=== PATIENT | female | born 1980 | race Caucasian/White ===

== ENCOUNTER 2017-03-31 09:48 | Emergency (ER) | payer MEDICAID ==
--- NOTE | 2017-03-31 10:06 | ED Physician Documentation ---
PD HPI ABD PAIN - Stated complaint Stated Complaint: ABD PX - Chief complaint Chief Complaint: Abd Pain - History obtained from History obtained from: Patient - History of Present Illness Timing - onset: Last night Timing - details: Gradual onset Quality: Pain Location: Other (right abdomen) Worsened by: Moving Associated symptoms: No: Fever, Nausea, Vomiting, Diarrhea, Dysuria Similar symptoms before: Has not had sx before - Additional information Additional information: The patient is a 37-year-old female who presents with right mid abdominal pain. The pain started last night and is more noticeable this morning. It is worse with movement, such as bending over. She denies associated fever, nausea, vomiting, or dysuria. She denies back pain. Her last menstrual period was one week ago. She has the Depo implant, and her previous menstrual period had been 6 months prior. Her past medical history is significant for kidney stones, but this does not feel like renal colic to her. 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 06/13/15 03/31/17 Promethazine [Phenergan] 25 - 50 mg PO Q6H PRN #10 tab 03/31/17 oxyCODONE/ACET 5/325 [Percocet 5 1 - 2 tab PO Q4-6H PRN #10 tablet 03/31/17 mg/325 mg] - Allergies Allergies/Adverse Reactions: Allergies Allergy/AdvReac Type Severity Reaction Status Date / Time latex Allergy Intermediate Hives Verified 06/13/15 20:33 hydrocodone Allergy Mild Itching Verified 06/13/15 20:33 - Social History Does the pt smoke?: No Smoking Status: Never smoker Does the pt drink ETOH?: Yes Does the pt have substance abuse?: No - Immunizations Immunizations are current?: Yes - POLST Patient has POLST: No PD ED PE NORMAL - Vitals Vital signs reviewed: Yes (normal) - General General: Alert and oriented X 3, Well developed/nourished - HEENT HEENT: Atraumatic, EOMI, Pharynx benign - Neck Neck: No adenopathy - Cardiac Cardiac: RRR - Respiratory Respiratory: No respiratory distress, Clear bilaterally - Abdomen Abdomen: Normal bowel sounds, Soft, Other (Rotund abdomen. Soft with tenderness to palpation in the right mid abdomen. No rebound tenderness or guarding.) - Back Back: No CVA TTP - Derm Derm: No rash - Extremities Extremities: No edema, No calf tenderness / cord - Neuro Neuro: Alert and oriented X 3, No motor deficit, Normal speech Results - Vitals Vitals: Vital Signs - 24 hr 03/31/17 03/31/17 12:11 13:33 Temperature 37.0 C Heart Rate 72 70 Respiratory 20 18 Rate Blood Pressure 114/74 118/72 O2 Saturation 97 100 Oxygen O2 Source Room air - Labs Labs: Laboratory Tests 03/31/17 03/31/17 03/31/17 10:05 10:05 10:18 WBC 9.6 RBC 5.03 Hgb 14.5 Hct 43.6 MCV 86.6 MCH 28.8 MCHC 33.3 RDW 13.8 Plt Count 310 MPV 8.1 Neut # 6.3 Lymph # 2.5 [place] # 0.5 Eos # 0.2 Baso # 0.1 Absolute Nucleated RBC 0.00 Nucleated RBCs 0.0 Sodium 137 Potassium 4.3 Chloride 103 Carbon Dioxide 26 Anion Gap 8.0 BUN 14 Creatinine 0.6 Estimated GFR (MDRD) 113 Glucose 100 Calcium 9.3 Total Bilirubin 0.4 AST 27 ALT 37 Alkaline Phosphatase 60 Total Protein 8.4 H Albumin 4.6 Globulin 3.8 Albumin/Globulin Ratio 1.2 Lipase 21 L Urine Color YELLOW Urine Clarity CLEAR Urine pH 6.0 Ur Specific [place] 1.020 Urine Protein NEGATIVE Urine Glucose (UA) NEGATIVE Urine Ketones NEGATIVE Urine Occult Blood NEGATIVE Urine Nitrite NEGATIVE Urine Bilirubin NEGATIVE Urine Urobilinogen 0.2 (NORMAL) Ur Leukocyte Esterase NEGATIVE Ur Microscopic Review NOT INDICATED Urine Culture Comments NOT INDICATED - Rads (name of study) CT abd/pelvis Radiology: Prelim report reviewed, EMP read contemporaneously, See rad report ( 1. There is a nonobstructing 4 mm stone in the left kidney. No hydronephrosis or hydroureter. 2. No bowel obstruction or inflammatory process associated with the bowel. 3. There is a fat-containing umbilical hernia.) PD MEDICAL DECISION MAKING - ED course Complexity details: reviewed old records, reviewed results, re-evaluated patient , considered differential, d/w patient ED course: The patient's presentation is significant for right mid abdominal pain, etiology of which is not absolutely clear at this time. CT scan of the abdomen and pelvis reveals a small fat-containing umbilical hernia. It is likely that the patient's symptoms are related to this finding. CBC, chemistry panel, and urinalysis are normal. The patient does not have a surgical abdomen, and her presentation does not suggest biliary colic, pancreatitis, renal colic, or appendicitis. Treatment in the emergency department included administration of Zofran 4 mg orally. Her nausea improved with this treatment. Repeated examinations of her abdomen reveal very mild discomfort to palpation in the right mid abdomen. She is being discharged with prescriptions for Phenergan and for Percocet, 12 tablets. I discussed with her the results of her workup, symptomatic treatment and outpatient follow-up, as well as potentially worrisome signs or symptoms that should prompt reevaluation in the emergency department. Departure - Departure Disposition: 01 Home, Self Care Clinical Impression: Umbilical hernia Qualifiers: Obstruction and gangrene presence: without obstruction or gangrene Qualified Code(s): K42.9 - Umbilical hernia without obstruction or gangrene Condition: Stable Instructions: ED Abdominal Pain Unkn Cause Follow-Up: Tahir Carpenter PA-C [Primary Care Provider] - Prescriptions: oxyCODONE/ACET 5/325 [Percocet 5 mg/325 mg] 1 - 2 tab PO Q4-6H PRN #10 tablet PRN Reason: Pain Promethazine [Phenergan] 25 - 50 mg PO Q6H PRN #10 tab PRN Reason: Nausea / Vomiting Comments: Drink plenty of fluids. You can use Phenergan as prescribed if needed for nausea. You can use ibuprofen, up to 800 mg as needed for discomfort. He denies Percocet as prescribed if needed for pain. Follow up with your primary physician within 2 weeks. Call to schedule an appointment. Return to the emergency department if you develop increasing abdominal pain, persistent vomiting, fever, or otherwise worsening symptoms. Discharge Date/Time: 03/31/17 13:33
[2017-03-31 10:19] LABS: BASOPHILS # (AUTO) 0.1 10^3/uL (0.0-0.1); BASOPHILS % (AUTO) 0.7 %; EOSINOPHILS # (AUTO) 0.2 10^3/uL (0.0-0.7); EOSINOPHILS % (AUTO) 2.4 %; HCT - HEMATOCRIT 43.6 % (37.0-47.0); HGB - HEMOGLOBIN 14.5 g/dL (12.0-16.0); LYMPHOCYTES # (AUTO) 2.5 10^3/uL (1.5-3.5); LYMPHOCYTES % (AUTO) 26.5 %; MEAN CORPUSCULAR HEMOGLOBIN 28.8 pg (27.0-31.0); MEAN CORPUSCULAR HGB CONC 33.3 g/dL (32.0-36.0); MEAN CORPUSCULAR VOLUME 86.6 fL (81.0-99.0); MEAN PLATELET VOLUME 8.1 fL (7.9-10.8); MONOCYTES # (AUTO) 0.5 10^3/uL (0.0-1.0); MONOCYTES % (AUTO) 5.1 %; NEUTROPHILS # (AUTO) 6.3 10^3/uL (1.5-6.6); NEUTROPHILS % (AUTO) 65.3 %; RED BLOOD COUNT 5.03 10^6/uL (4.20-5.40); RED CELL DISTRIBUTION WIDTH 13.8 % (12.0-15.0); UNCORRECTED WHITE BLOOD COUNT 9.6 x10^3/uL; WHITE BLOOD COUNT 9.6 x10^3/uL (4.8-10.8)
[2017-03-31 10:27] LABS: BILIRUBIN,URINE NEGATIVE (NEGATIVE)
[2017-03-31 10:29] LABS: UA CHARGE (STRIP ONLY) YES; UR CULTURE IF IND NOT INDICATED
[2017-03-31 10:32] LABS: ALBUMIN/GLOBULIN RATIO 1.2 (1.0-2.2); BILIRUBIN,TOTAL 0.4 mg/dL (0.2-1.0); CALCIUM 9.3 mg/dL (8.5-10.3); CREATININE 0.6 mg/dL (0.4-1.0); POTASSIUM 4.3 mmol/L (3.5-5.0); TOTAL PROTEIN 8.4 g/dL (6.7-8.2)
--- NOTE | 2017-03-31 12:28 | CT Preliminary Report ---
Exam: CT Abdomen/Pelvis W/O IMPRESSION: 1. There is a nonobstructing 4 mm stone in the left kidney. No hydronephrosis or hydroureter. 2. No bowel obstruction or inflammatory process associated with the bowel. 3. There is a fat-containing umbilical hernia. [facility] SITE ID: [id number]
--- NOTE | 2017-03-31 12:31 | CT Report ---
EXAM: CT ABDOMEN AND PELVIS EXAM DATE: 03/31/2017 12:06 PM. CLINICAL HISTORY: Right mid abd. pain; history of kidney stones. COMPARISONS: None. TECHNIQUE: Routine helical CT imaging was performed through the abdomen and pelvis. IV contrast: None . Enteric contrast: No. Reconstructions: Coronal and sagittal. In accordance with CT protocol optimization, one or more of the following dose reduction techniques w ere utilized for this exam: automated exposure control, adjustment of mA and/or KV based on patient s ize, or use of iterative reconstructive technique. FINDINGS: Lung Bases: Unremarkable. Liver: The liver is low in attenuation with no focal lesions. Gallbladder/Bile Ducts: Status post cholecystectomy. Spleen: Normal. Pancreas: Normal. Adrenal Glands: Normal. Kidneys: 4 mm nonobstructing stone in the left kidney. No hydronephrosis or hydroureter. Peritoneal Cavity/Bowel: Normal. No free fluid, free air or adenopathy. No masses or acute inflammato ry process. The appendix is well visualized and normal. Pelvic Organs: Normal. The bladder and visualized pelvic organs are within normal limits. Vasculature: No aneurysms or other significant abnormality. Bones: No significant abnormality. Other: There is a fat-containing umbilical hernia measuring 9 mm at the neck. IMPRESSION: 1. There is a nonobstructing 4 mm stone in the left kidney. No hydronephrosis or hydroureter. 2. No bowel obstruction or inflammatory process associated with the bowel. 3. There is a fat-containing umbilical hernia. [facility] Referring Provider Line: [phone] SITE ID: [id number]
[2017-03-31] MEDS ORDERED: ONDANSETRON ODT 4 MG TABLET TL STA (12:57)
[2017-03-31] MEDS ORDERED: ONDANSETRON ODT 4 MG TABLET ONE (13:04)
[2017-03-31 13:34] VITALS: BP 118/72
== END 2017-03-31 13:33 | disposition home or self-care (01) ==
LOC: ED 09:48
DX: K42.9 Umbilical hernia without obstruction or gangrene (principal)
CPT/HCPCS: 36415; 74176; 80053; 81003; 83690; 85025; 99283; Q0162; 81001; 87086

== ENCOUNTER 2017-07-10 18:56 | Emergency (ER) | payer MEDICAID ==
[2017-07-10] MEDS ORDERED: TETANUS/DIPHTHERIA/PERTUSSIS 0.5 ML SYRINGE IM ONE ×2 (19:16→19:42)
--- NOTE | 2017-07-10 19:23 | ED Physician Documentation ---
PD HPI LOWER EXT INJURY - Stated complaint Stated Complaint: RIGHT TOE INJURY - Chief complaint Chief Complaint: Ext Problem - History obtained from History obtained from: Patient - History of Present Illness PD HPI LOW EXT INJURY LOCATION: Right, Toe (She was at a fabric store and her daughter opened up a drawer and it impacted her great toe and the toenail is broken and quite painful. Tetanus is not up-to-date. 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 : Kidney stones HEENT: None Psych: Depression Musculoskeletal: None Derm: None - Past Surgical History Past Surgical History: Yes General: Cholecystectomy - Present Medications Home Medications: Ambulatory Orders Medication Instructions Recorded Confirmed FLUoxetine [PROzac] 40 mg PO DAILY 05/05/14 07/10/17 - Allergies Allergies/Adverse Reactions: Allergies Allergy/AdvReac Type Severity Reaction Status Date / Time latex Allergy Intermediate Hives Verified 07/10/17 19:07 hydrocodone Allergy Mild Itching Verified 07/10/17 19:07 - Social History Does the pt smoke?: No Smoking Status: Never smoker Does the pt drink ETOH?: Yes Does the pt have substance abuse?: No - Immunizations Immunizations are current?: Yes - POLST Patient has POLST: No PD ED PE NORMAL - Vitals Vital signs reviewed: Yes - General General: Alert and oriented X 3, No acute distress - Extremities Extremities: Other (There is a longitudinal break in the right great toenail, she has nail slovenian in place so I am unable during initial evaluation to evaluate for subungual hematoma, she is tender at the tip.) - Neuro Neuro: Alert and oriented X 3, Normal speech - Psych Psych: Normal mood, Normal affect Results - Vitals Vitals: Vital Signs - 24 hr 07/10/17 07/10/17 19:05 20:23 Temperature 36.3 C L 37.1 C Heart Rate 87 78 Respiratory 18 20 Rate Blood Pressure 126/79 114/75 O2 Saturation 100 99 Oxygen O2 Source Room air - Rads (name of study) R 1st toe Radiology: EMP read contemporaneously (no frx) Procedures - Regional nerve block Nerve block site: Digital - note digit(s) (Right great toe) Nerve block anesthesia: Lidocaine 1%, Marcaine 0.25% Nerve block aftercare: Excellent anesthesia PD MEDICAL DECISION MAKING - ED course ED course: After the administration of a digital block the toenail slovenian was removed and there was no significant subungual hematoma, she does have a onychomycosis. Departure - Departure Disposition: 01 Home, Self Care Clinical Impression: Crushing injury of toe Qualifiers: Encounter type: initial encounter Laterality: right Qualified Code(s): S97.101A - Crushing injury of unspecified right toe(s), initial encounter Condition: Good Record reviewed to determine appropriate education?: Yes Instructions: ED Crush Injury Toe No Fx Comments: Recheck with your doctor in 1 week if still painful. Return if worse. Discharge Date/Time: 07/10/17 20:25
[2017-07-10] MEDS ORDERED: oxyCODONE/ACET 5/325 Prepack 4 PO STA (20:09)
--- NOTE | 2017-07-10 20:17 | XRAY Preliminary Report ---
Exam: XR TOE(S) RT IMPRESSION: 1. Mild first toe swelling. 2. Normal alignment. 3. No fracture. [facility] SITE ID: [id number]
--- NOTE | 2017-07-10 20:20 | XRAY Report ---
EXAM: RIGHT FIRST TOE RADIOGRAPHY EXAM DATE: 07/10/2017 07:32 PM. CLINICAL HISTORY: Great toe inj. COMPARISON: None. TECHNIQUE: 3 views. FINDINGS: Bones: Normal. No fracture or bone lesion. Joints: Normal. No subluxations. Soft Tissues: Mild first toe swelling. IMPRESSION: 1. Mild first toe swelling. 2. Normal alignment. 3. No fracture. [facility] Referring Provider Line: [phone] SITE ID: [id number]
[2017-07-10] MEDS ORDERED: oxyCODONE/ACET 5/325 Prepack 4 PO ONE (20:21)
[2017-07-10 20:24] VITALS: BP 114/75
== END 2017-07-10 20:25 | disposition home or self-care (01) ==
LOC: ED 18:56
DX: S97.111A Crushing injury of right great toe, initial encounter (principal); Y92.512 Supermarket, store or market as the place of occurrence of the external cause; W22.8XXA Striking against or struck by other objects, initial encounter; B35.1 Tinea unguium; M79.674 Pain in right toe(s); Z23 Encounter for immunization
CPT/HCPCS: 64450; 73660; 90471; 99283

== ENCOUNTER 2018-11-13 10:16 | Emergency (ER) | payer MEDICAID ==
[2018-11-13 10:35] VITALS: BP 132/72
--- NOTE | 2018-11-13 12:17 | ED Physician Documentation ---
PD HPI URI - Stated complaint Stated Complaint: EAR PAIN/THROAT PAIN - Chief complaint Chief Complaint: Heent - History obtained from History obtained from: Patient - History of Present Illness Timing - onset: Other (She is been sick for about 5 days with on and off scratchy throat but significant ear pressure and pain on the left with slightly decreased hearing. No drainage. 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 : Kidney stones HEENT: None Psych: Depression Musculoskeletal: None Derm: None - Past Surgical History Past Surgical History: Yes General: Cholecystectomy - Present Medications Home Medications: Ambulatory Orders Medication Instructions Recorded Confirmed FLUoxetine [PROzac] 40 mg PO DAILY 05/05/14 07/10/17 Neomycin/Polymyx/Hc Otic Drops 4 drops OT TID #1 bottle 11/13/18 [Cortisporin Ear Susp] - Allergies Allergies/Adverse Reactions: Allergies Allergy/AdvReac Type Severity Reaction Status Date / Time latex Allergy Intermediate Hives Verified 07/10/17 19:07 hydrocodone Allergy Mild Itching Verified 07/10/17 19:07 - Social History Does the pt smoke?: No Smoking Status: Never smoker Does the pt drink ETOH?: Yes Does the pt have substance abuse?: No - Immunizations Immunizations are current?: Yes - POLST Patient has POLST: No PD ED PE NORMAL - Vitals Vital signs reviewed: Yes - General General: Alert and oriented X 3, No acute distress - HEENT HEENT: Other (Tonsils look okay and there is no cervical adenopathy. She has a mild case of left external otitis without otitis media.) - Neck Neck: Supple, no meningeal sign, No bony TTP, No adenopathy - Derm Derm: No rash - Extremities Extremities: No edema, No calf tenderness / cord - Neuro Neuro: Alert and oriented X 3, Normal speech Results - Vitals Vitals: Vital Signs - 24 hr 11/13/18 10:33 Temperature 36.5 C Heart Rate 78 Respiratory 16 Rate Blood Pressure 132/72 H O2 Saturation 97 Oxygen O2 Source Room air Departure - Departure Disposition: 01 Home, Self Care Clinical Impression: Viral URI Otitis externa, left Qualifiers: Otitis externa type: swimmer's ear Chronicity: acute Qualified Code(s): H60.332 - Swimmer's ear, left ear Condition: Good Record reviewed to determine appropriate education?: Yes Instructions: ED Otitis Externa, ED Viral Syndrome Prescriptions: Neomycin/Polymyx/Hc Otic Drops [Cortisporin Ear Susp] 4 drops OT TID #1 bottle Comments: Return for new or worsening symptoms or if not better in 5 days follow-up with your physician. Your blood pressure was elevated today on check into the emergency department. This does not mean that you have hypertension, it is a common phenomenon to come to the emergency department and have elevated blood pressure. I recommend that you see your primary care physician within the week to have it rechecked when you are feeling better.
== END 2018-11-13 13:57 | disposition home or self-care (01) ==
LOC: ED 10:16
DX: J06.9 Acute upper respiratory infection, unspecified (principal); B97.89 Other viral agents as the cause of diseases classified elsewhere; H60.332 Swimmer's ear, left ear
CPT/HCPCS: 99283

== ENCOUNTER 2019-12-03 12:30 | Outpatient (CLI) | payer MEDICAID ==
--- NOTE | 2019-12-03 14:26 | Ultrasound Report ---
Reason: RT AXILLA LUMPS Procedure Date: 12/03/2019 Accession Number: [id number] / [id number] Procedure: US - Breast Unilateral Limited CPT Code: Final Report FULL RESULT: EXAM: Diagnostic Dig Bilat, Breast Unilateral Limited Left, Breast Unilateral Limited Right DATE: 12/03/2019 1:32 PM CLINICAL HISTORY: Palpable axillary lumps. COMPARISON: Baseline study. MAMMOGRAM: TECHNIQUE: (B) - Bilateral CC and MLO views were obtained. PARENCHYMAL PATTERN: (A) - The breasts demonstrate scattered fibroglandular densities bilaterally. FINDINGS: There are no suspicious masses, calcifications, skin thickening, or areas of distortion. An axillary lymph node is seen on the left. BILATERAL AXILLARY ULTRASOUND: TECHNIQUE: Real time scanning by the dual rate supervisor with saved static images reviewed. FINDINGS: Bilateral normal-appearing lymph nodes correspond to the palpable finding in each axilla. On the right the dominant lymph node is 1.3 x 1.3 x 0.5 cm and on the left 1.2 x 0.9 x 0.6 cm. IMPRESSION: Benign findings. BI-RADS category 2. RECOMMENDATION: (ANNUAL) - Recommend routine annual screening mammography. Beginning at age 40. BI-RADS CATEGORY: (2) - Benign Findings. STANDARD QUALIFYING STATEMENTS: 1. This examination was not reviewed with the aid of Computer-Aided Detection (CAD). 2. A negative or benign imaging report should not preclude biopsy if clinically suspicious findings are present. 3. Dense breasts may obscure an underlying neoplasm. 4. This examination was reviewed with the aid of 3D breast imaging (tomosynthesis).
--- NOTE | 2019-12-03 14:26 | Ultrasound Report ---
Reason: LT BREAST PAIN, LT AXILLA LUMPS Procedure Date: 12/03/2019 Accession Number: [id number] / [id number] Procedure: US - Breast Unilateral Limited CPT Code: Final Report FULL RESULT: EXAM: Diagnostic Dig Bilat, Breast Unilateral Limited Left, Breast Unilateral Limited Right DATE: 12/03/2019 1:32 PM CLINICAL HISTORY: Palpable axillary lumps. COMPARISON: Baseline study. MAMMOGRAM: TECHNIQUE: (B) - Bilateral CC and MLO views were obtained. PARENCHYMAL PATTERN: (A) - The breasts demonstrate scattered fibroglandular densities bilaterally. FINDINGS: There are no suspicious masses, calcifications, skin thickening, or areas of distortion. An axillary lymph node is seen on the left. BILATERAL AXILLARY ULTRASOUND: TECHNIQUE: Real time scanning by the live in housekeeper with saved static images reviewed. FINDINGS: Bilateral normal-appearing lymph nodes correspond to the palpable finding in each axilla. On the right the dominant lymph node is 1.3 x 1.3 x 0.5 cm and on the left 1.2 x 0.9 x 0.6 cm. IMPRESSION: Benign findings. BI-RADS category 2. RECOMMENDATION: (ANNUAL) - Recommend routine annual screening mammography. Beginning at age 40. BI-RADS CATEGORY: (2) - Benign Findings. STANDARD QUALIFYING STATEMENTS: 1. This examination was not reviewed with the aid of Computer-Aided Detection (CAD). 2. A negative or benign imaging report should not preclude biopsy if clinically suspicious findings are present. 3. Dense breasts may obscure an underlying neoplasm. 4. This examination was reviewed with the aid of 3D breast imaging (tomosynthesis).
== END 2019-12-03 12:31 | disposition home or self-care (01) ==
LOC: DI 12:30
PROVIDERS: ATTEND Nurse Practitioner Gerontology
DX: N64.4 Mastodynia (principal); R22.9 Localized swelling, mass and lump, unspecified
CPT/HCPCS: 76642; 77066

== ENCOUNTER 2020-02-09 22:29 | Emergency (ER) | payer MEDICAID ==
--- NOTE | 2020-02-09 22:44 | ED Physician Documentation ---
History of Present Illness - Stated complaint Stated Complaint: CP, SOA, BRUISING, SERNA - Chief complaint Chief Complaint: Resp - History obtained from History obtained from: Patient (Patient is a 40-year-old female who presents with chest pain and shortness of breath and rapid heartbeat patient reports she has had symptoms off and on for the last 2 weeks without hemoptysis no history of pulmonary embolism or DVT no history of syncope or VT or stroke. She does have an indwelling Implanon device. She denies any fevers or syncopal episodes.) Review of Systems Constitutional: reports: Reviewed and negative Eyes: reports: Reviewed and negative Ears: reports: Reviewed and negative Nose: reports: Reviewed and negative Throat: reports: Reviewed and negative Cardiac: reports: Palpitations Respiratory: reports: Dyspnea GI: reports: Reviewed and negative : reports: Reviewed and negative Skin: reports: Reviewed and negative Musculoskeletal: reports: Reviewed and negative Neurologic: reports: Reviewed and negative Psychiatric: reports: Reviewed and negative Endocrine: reports: Reviewed and negative Immunocompromised: reports: Reviewed and negative PD PAST MEDICAL HISTORY - Past Medical History Cardiovascular: None Respiratory: None Endocrine/Autoimmune: None GI: None CLIENT ADMINISTRATOR: None : Kidney stones HEENT: None Psych: Depression Musculoskeletal: None Derm: None - Past Surgical History Past Surgical History: Yes General: Cholecystectomy - Present Medications Home Medications: Ambulatory Orders Medication Instructions Recorded Confirmed FLUoxetine [PROzac] 40 mg PO DAILY 05/05/14 07/10/17 Neomycin/Polymyx/Hc Otic Drops 4 drops OT TID #1 bottle 11/13/18 [Cortisporin Ear Susp] - Allergies Allergies/Adverse Reactions: Allergies Allergy/AdvReac Type Severity Reaction Status Date / Time latex Allergy Intermediate Hives Verified 02/09/20 22:38 hydrocodone Allergy Mild Itching Verified 02/09/20 22:38 - Social History Does the pt smoke?: No Smoking Status: Never smoker Does the pt drink ETOH?: Yes Does the pt have substance abuse?: No - Immunizations Immunizations are current?: Yes - POLST Patient has POLST: No PD ED PE NORMAL - Vitals Vital signs reviewed: Yes - General General: Alert and oriented X 3, No acute distress, Well developed/nourished - HEENT HEENT: PERRL, Moist mucous membranes - Neck Neck: Supple, no meningeal sign, Thyroid normal - Cardiac Cardiac: No murmur, Strong equal pulses, Other (Tachycardic) - Respiratory Respiratory: No respiratory distress, Clear bilaterally - Abdomen Abdomen: Normal bowel sounds, Soft, Non tender, Non distended - Back Back: No CVA TTP, No spinal TTP - Derm Derm: Normal color, Warm and dry, No rash - Extremities Extremities: No deformity, No tenderness to palpate, Normal ROM s pain, No edema, No calf tenderness / cord - Neuro Neuro: Alert and oriented X 3, blocker and polisher gold wheel 2-12 intact, No motor deficit, No sensory deficit, Normal speech - Psych Psych: Normal mood, Normal affect Results - Vitals Vitals: Vital Signs - 24 hr 02/09/20 02/09/20 02/10/20 22:30 23:41 01:00 Temperature 36.1 C L Heart Rate 120 H 96 98 Respiratory 17 20 21 Rate Blood Pressure 125/66 114/73 109/64 O2 Saturation 97 96 96 Oxygen O2 Source Room air - EKG (time done) 22:43 Rate: Other (No STEMI) - Labs Labs: Laboratory Tests 02/09/20 02/09/20 02/09/20 22:50 22:50 22:50 WBC 9.1 RBC 4.98 Hgb 14.5 Hct 44.4 MCV 89.2 MCH 29.1 MCHC 32.7 RDW 13.1 Plt Count 354 MPV 9.3 Neut # (Auto) 5.9 Lymph # (Auto) 2.0 [place] # (Auto) 0.7 Eos # (Auto) 0.4 Baso # (Auto) 0.1 Absolute Nucleated RBC 0.00 Nucleated RBC % 0.0 PT 15.2 H INR 1.4 H APTT 32.9 Sodium 137 Potassium 3.7 Chloride 102 Carbon Dioxide 23 Anion Gap 12.0 BUN 14 Creatinine 0.8 Estimated GFR (MDRD) 80 L Glucose 123 H Calcium 9.8 Total Bilirubin 0.5 AST 46 H ALT 77 H Alkaline Phosphatase 108 Total Creatine Kinase 77 Troponin I High Sens B-Natriuretic Peptide Total Protein 8.6 H Albumin 4.3 Globulin 4.3 H Albumin/Globulin Ratio 1.0 Lipase 33 Urine Color Urine Clarity Urine pH Ur Specific [place] Urine Protein Urine Glucose (UA) Urine Ketones Urine Occult Blood Urine Nitrite Urine Bilirubin Urine Urobilinogen Ur Leukocyte Esterase Ur Microscopic Review Urine Culture Comments Urine HCG, Qual 02/09/20 02/09/2020 22:50 22:50 23:24 WBC RBC Hgb Hct MCV MCH MCHC RDW Plt Count MPV Neut # (Auto) Lymph # (Auto) [place] # (Auto) Eos # (Auto) Baso # (Auto) Absolute Nucleated RBC Nucleated RBC % PT INR APTT Sodium Potassium Chloride Carbon Dioxide Anion Gap BUN Creatinine Estimated GFR (MDRD) Glucose Calcium Total Bilirubin AST ALT Alkaline Phosphatase Total Creatine Kinase Troponin I High Sens 3.4 B-Natriuretic Peptide 5 Total Protein Albumin Globulin Albumin/Globulin Ratio Lipase Urine Color YELLOW Urine Clarity CLEAR Urine pH 6.0 Ur Specific [place] 1.015 Urine Protein NEGATIVE Urine Glucose (UA) NEGATIVE Urine Ketones NEGATIVE Urine Occult Blood NEGATIVE Urine Nitrite NEGATIVE Urine Bilirubin NEGATIVE Urine Urobilinogen 0.2 (NORMAL) Ur Leukocyte Esterase NEGATIVE Ur Microscopic Review NOT INDICATED Urine Culture Comments NOT INDICATED Urine HCG, Qual 02/09/20 23:24 WBC RBC Hgb Hct MCV MCH MCHC RDW Plt Count MPV Neut # (Auto) Lymph # (Auto) [place] # (Auto) Eos # (Auto) Baso # (Auto) Absolute Nucleated RBC Nucleated RBC % PT INR APTT Sodium Potassium Chloride Carbon Dioxide Anion Gap BUN Creatinine Estimated GFR (MDRD) Glucose Calcium Total Bilirubin AST ALT Alkaline Phosphatase Total Creatine Kinase Troponin I High Sens B-Natriuretic Peptide Total Protein Albumin Globulin Albumin/Globulin Ratio Lipase Urine Color Urine Clarity Urine pH Ur Specific [place] 1.015 Urine Protein Urine Glucose (UA) Urine Ketones Urine Occult Blood Urine Nitrite Urine Bilirubin Urine Urobilinogen Ur Leukocyte Esterase Ur Microscopic Review Urine Culture Comments Urine HCG, Qual NEGATIVE PD MEDICAL DECISION MAKING - ED course Complexity details: reviewed results (Patient's chest x-ray shows some Right infrahilar mass. This is likely the cause of the persistent symptoms to include shortness of breath. She denies any fevers, headaches, chills or night sweats denies any recent believe she would have tuberculosis denies any risk factors such as being immunocompromised or travel outside the country or work in the healthcare industry. She denies any hemoptysis a CT angiogramOf the chest was ordered which was unable to completely rule out pulmonary embolus, I explained this to the patient, did notice on the CT angiogram that there was interpretation by the radiologistThat she has extensive mediastinal and hilar lymphadenopathy as well as interstitial changes in the periphery of the lungs and a small pulmonary nodule in the right upper lobe had an extensive discussion with this patient in regards of this findings it was unable to rule out a pulmonary embolism and unable to give a final diagnosis of the cause of her shortness of breath however I believe it is very likely that the cause of her shortness of breath is related to her extensive mediastinal and hilar lymphaden opathy I did offer to admit this patient to our hospital for further evaluation however she states that she would like to be discharged home I did offer to transfer her to a higher level of care for pulmonology consult to [facility] however the begin the patient reports she like to be discharged home and follow-up as an outpatient I do feel this is reasonable. She has good follow-up with a primary care provider she was given a referral to the production superintendent at [facility] Dr. Michelle Saab production superintendent.Patient does have medical decision-making capability capacity and would except any and all risks and all live but he for any possible adverse outcome to include cardiac or pulmonary arrest or disability.), re-evaluated patient, considered differential, d/w patient Departure - Departure Disposition: 01 Home, Self Care Clinical Impression: Pulmonary nodules, Hilar lymphadenopathy Condition: Stable Instructions: Lymphadenopathy, ED Nodule Solitary Pulmonary Follow-Up: MICHELLE SAAB DO [Physician No Access] - Tomorrow Comments: call dr. michelle saab, telecom specialist tomorrow to schedule follow up. your CT scan of the chest shows the following results: CTA PE STUDY: IMPRESSION: 1. Nondiagnostic study for pulmonary emboli. No opacification of the pulmonary arteries. 2. Extensive mediastinal and hilar lymphadenopathy. 3. Interstitial changes in the periphery of the lungs and a small pulmonary nodule in the right upper lobe. CXR: IMPRESSION: 1. No infiltrates. 2. Right infrahilar mass. If clinically appropriate a CT scan of the chest with contrast might be considered for further characterization.
[2020-02-09] MEDS ORDERED: SODIUM CHLORIDE 0.9% 1,000 ML IV STA (22:46)
[2020-02-09 22:56] LABS: BASOPHILS # (AUTO) 0.1 10^3/uL (0.0-0.1); BASOPHILS % (AUTO) 0.7 %; EOSINOPHILS # (AUTO) 0.4 10^3/uL (0.0-0.7); EOSINOPHILS % (AUTO) 4.8 %; HGB - HEMOGLOBIN 14.5 g/dL (12.0-16.0); LYMPHOCYTES % (AUTO) 21.5 %; MEAN CORPUSCULAR HEMOGLOBIN 29.1 pg (27.0-31.0); MEAN CORPUSCULAR HGB CONC 32.7 g/dL (32.0-36.0); MEAN CORPUSCULAR VOLUME 89.2 fL (81.0-99.0); MEAN PLATELET VOLUME 9.3 fL (7.9-10.8); MONOCYTES # (AUTO) 0.7 10^3/uL (0.0-1.0); MONOCYTES % (AUTO) 7.5 %; NEUTROPHILS # (AUTO) 5.9 10^3/uL (1.5-6.6); NEUTROPHILS % (AUTO) 64.9 %; PLT - PLATELET COUNT 354 10^3/uL (130-450); RED BLOOD COUNT 4.98 10^6/uL (4.20-5.40); RED CELL DISTRIBUTION WIDTH 13.1 % (12.0-15.0); WHITE BLOOD COUNT 9.1 x10^3/uL (4.8-10.8)
[2020-02-09 23:05] LABS: INR 1.4 (0.8-1.2); PT - PROTHROMBIN TIME 15.2 secs (9.9-12.6)
[2020-02-09 23:12] LABS: PARTIAL THROMBOPLASTIN TIME 32.9 secs (24.9-33.3)
--- NOTE | 2020-02-09 23:17 | XRAY Report ---
Reason: cp sob Procedure Date: 02/09/2020 Accession Number: [id number] / [id number] Procedure: XR - Chest 1 View X-Ray CPT Code: 94446 Final Report FULL RESULT: EXAM: CHEST RADIOGRAPHY EXAM DATE: 02/09/2020 10:44 PM. CLINICAL HISTORY: Cp sob. COMPARISON: None. TECHNIQUE: 1 view. FINDINGS: Lungs/Pleura: There are no acute infiltrates. No pleural effusions. Mediastinum: The heart is not enlarged. There is a right infrahilar mass which measures approximately 3.4 cm. Other: None. IMPRESSION: 1. No infiltrates. 2. Right infrahilar mass. If clinically appropriate a CT scan of the chest with contrast might be considered for further characterization. RADIA
[2020-02-09 23:20] LABS: ALBUMIN 4.3 g/dL (3.2-5.5); BILIRUBIN,TOTAL 0.5 mg/dL (0.2-1.0); CALCIUM 9.8 mg/dL (8.5-10.3); CREATININE 0.8 mg/dL (0.4-1.0); TOTAL PROTEIN 8.6 g/dL (6.7-8.2)
[2020-02-09 23:41] LABS: BILIRUBIN,URINE NEGATIVE (NEGATIVE); GLUCOSE, URINE (UA) NEGATIVE (NEGATIVE); KETONES,URINE (UA) NEGATIVE (NEGATIVE); LEUKOCYTE ESTERASE, URINE NEGATIVE (NEGATIVE); NITRITE,URINE NEGATIVE (NEGATIVE); OCCULT BLOOD,URINE NEGATIVE (NEGATIVE); PROTEIN,URINE NEGATIVE (NEGATIVE); UROBILINOGEN,URINE 0.2 (NORMAL) E.U./dL (NORMAL)
[2020-02-09 23:45] LABS: CLARITY,URINE CLEAR (CLEAR); HCG UR QUAL NEGATIVE
[2020-02-09] MEDS ORDERED: IOVERSOL 320 100 ML VIAL IVP ONE (23:51)
[2020-02-10] MEDS ORDERED: IOVERSOL 320 100 ML VIAL IVP ONE (00:34)
--- NOTE | 2020-02-10 00:53 | CT Report ---
Reason: chest pain, sob, tachycardic Procedure Date: 02/10/2020 Accession Number: [id number] / [id number] Procedure: CT - ANGIO CHEST W/WO CPT Code: Final Report FULL RESULT: EXAM: CT ANGIOGRAM CHEST EXAM DATE: 02/10/2020 12:32 AM. CLINICAL HISTORY: Chest pain, shortness of breath, tachycardic. COMPARISON: None. TECHNIQUE: Routine helical imaging was performed through the chest in the pulmonary arterial phase. IV Contrast: Optiray 320. Reconstructions: Coronal 3-D MIP reconstructions. Sagittal and coronal. In accordance with CT protocol optimization, one or more of the following dose reduction techniques were utilized for this exam: automated exposure control, adjustment of mA and/or KV based on patient size, or use of iterative reconstructive technique. FINDINGS: Pulmonary Arteries: Diagnostic quality: There is no opacification of the pulmonary arteries. The contrast was largely in the draining pulmonary veins and the left heart and aorta. Lungs/Pleura: There are interstitial changes within the lungs. There is a small ill-defined pulmonary nodule in the right upper lobe on series 6 image 73. This measures 8 mm. Mediastinum: There is extensive mediastinal and bi-hilar lymphadenopathy. Hilar lymph nodes measure up to 26 mm in short axis diameter. Subcarinal lymph node measures up to 23 mm in short axis diameter. There are large lymph nodes in the middle mediastinum and along the aortic arch. There is no axillary lymphadenopathy. Thoracic Aorta: Unremarkable. Upper Abdomen: Unremarkable. Other: None. IMPRESSION: 1. Nondiagnostic study for pulmonary emboli. No opacification of the pulmonary arteries. 2. Extensive mediastinal and hilar lymphadenopathy. 3. Interstitial changes in the periphery of the lungs and a small pulmonary nodule in the right upper lobe. RADIA
[2020-02-10 01:23] VITALS: BP 121/89
== END 2020-02-10 01:29 | disposition home or self-care (01) ==
LOC: ED 22:29
DX: R91.1 Solitary pulmonary nodule (principal); R59.0 Localized enlarged lymph nodes; R00.0 Tachycardia, unspecified; I44.4 Left anterior fascicular block
CPT/HCPCS: 36415; 71045; 71275; 80053; 81003; 81025; 82550; 83690; 83880; 84484; 85025; 85610; 85730; 93005; 96360; 99284; 99285; Q9967; 81001; 87086

== ENCOUNTER 2020-05-05 08:00 | Outpatient (CLI) | payer MEDICAID ==
[2020-05-05 19:11] LABS: HB2 TOTAL 14.2 g/dL; HEMOGLOBIN A1C 0.59 g/dL
== END 2020-05-05 23:59 | disposition home or self-care (01) ==
LOC: LAB.WCP 08:00
PROVIDERS: ATTEND Family Medicine
DX: R73.9 Hyperglycemia, unspecified (principal)
CPT/HCPCS: 36415; 83036

== ENCOUNTER 2020-06-20 12:11 | Outpatient (CLI) | payer MEDICAID ==
[2020-06-20] MEDS ORDERED: IOVERSOL 320 100 ML VIAL IVP ONE ×2 (12:34→12:43)
--- NOTE | 2020-06-20 13:19 | CT Report ---
PROCEDURE: CHEST W INDICATIONS: SARCOIDOSIS CONTRAST: IV CONTRAST: Optiray 320 ml: 100 PO CONTRAST: *NO PO CONTRAST TECHNIQUE: After the administration of intravenous contrast, 5 mm thick sections acquired from the pulmonary api mary kay to the posterior costophrenic angles. 7 mm thick coronal MIP reformats were acquired. For radia tion dose reduction, the following was used: automated exposure control, adjustment of mA and/or kV according to patient size. COMPARISON: CTA chest 02/10/2020. FINDINGS: Image quality: Excellent. Lungs and pleura: No acute air space opacities. A right upper lobe peribronchial vascular nodule rené sures 4 x 5 mm (image 60 of series 4), compared to 8 x 8 mm on the prior CT from 02/10/2020. No signif icant reticulations are seen. There is no significant air trapping. No pleural effusions or pneumotho rax. Central and peripheral airways are patent and normal in caliber. Mediastinum: Heart size is normal. No pericardial effusion. No mediastinal or hilar adenopathy by size criteria. Thoracic aorta and central pulmonary arteries are normal in size. Esophagus is juani l in caliber. There is a small hiatal hernia. Bones and chest wall: No suspicious bony lesions. No vertebral body compression fractures. No axil dottie or supraclavicular adenopathy by size criteria. Thyroid gland appears normal. Abdomen: Status post cholecystectomy. A 5 mm nonobstructing calculus is seen in the interpolar regio n of the left kidney. Visualized upper abdominal solid organs otherwise appear normal. Upper abdomin al bowel loops are normal in caliber. IMPRESSION: 1. The previously seen hilar and mediastinal lymphadenopathy has resolved without residual lymph nod e enlargement in the chest. 2. Right upper lobe 5 mm peribronchovascular pulmonary nodule has decreased in size when compared to the prior CTA from 02/10/2020. No new pulmonary nodule is identified. 3. Nonobstructing 5 mm calculus in the interpolar region of the left kidney. Reviewed by: Melo Reynoso MD on 06/20/2020 1:18 PM PDT Approved by: Melo Reynoso MD on 06/20/2020 1:18 PM PDT Station ID: [id number]
== END 2020-06-20 12:12 | disposition home or self-care (01) ==
LOC: DI 12:11
PROVIDERS: ATTEND Internal Medicine Sleep Medicine
DX: D86.9 Sarcoidosis, unspecified (principal); R91.1 Solitary pulmonary nodule; N20.0 Calculus of kidney
CPT/HCPCS: 71260; Q9967

== ENCOUNTER 2020-10-08 08:00 | Outpatient (CLI) | payer MEDICAID ==
[2020-10-08 12:39] LABS: HEMOGLOBIN A1c% 5.6 % (4.27-6.07)
[2020-10-08 13:10] LABS: CREATININE 0.7 mg/dL (0.4-1.0)
== END 2020-10-08 23:59 | disposition home or self-care (01) ==
LOC: LAB.WCP 08:00
PROVIDERS: ATTEND Nurse Practitioner Family
DX: R73.03 Prediabetes (principal)
CPT/HCPCS: 36415; 80048; 83036

== ENCOUNTER 2021-11-13 09:04 | Outpatient (CLI) | payer MEDICAID ==
[2021-11-13 12:09] LABS: BASOPHILS # (AUTO) 0.1 10^3/uL (0.0-0.1); BASOPHILS % (AUTO) 0.4 %; EOSINOPHILS # (AUTO) 0.3 10^3/uL (0.0-0.7); EOSINOPHILS % (AUTO) 2.2 %; HCT - HEMATOCRIT 42.3 % (37.0-47.0); HGB - HEMOGLOBIN 13.5 g/dL (12.0-16.0); LYMPHOCYTES # (AUTO) 3.3 10^3/uL (1.5-3.5); LYMPHOCYTES % (AUTO) 24.3 %; MEAN CORPUSCULAR HEMOGLOBIN 29.2 pg (27.0-31.0); MEAN CORPUSCULAR HGB CONC 31.9 g/dL (32.0-36.0); MEAN CORPUSCULAR VOLUME 91.4 fL (81.0-99.0); MEAN PLATELET VOLUME 9.9 fL (7.9-10.8); MONOCYTES # (AUTO) 0.7 10^3/uL (0.0-1.0); MONOCYTES % (AUTO) 4.8 %; NEUTROPHILS # (AUTO) 9.1 10^3/uL (1.5-6.6); NEUTROPHILS % (AUTO) 67.9 %; PLT - PLATELET COUNT 278 10^3/uL (130-450); RED BLOOD COUNT 4.63 10^6/uL (4.20-5.40); RED CELL DISTRIBUTION WIDTH 13.5 % (12.0-15.0); WHITE BLOOD COUNT 13.4 x10^3/uL (4.8-10.8)
[2021-11-13 12:22] LABS: ESTIMATED AVERAGE GLUCOSE 114 mg/dL (70-100); HEMOGLOBIN A1c% 5.6 % (4.27-6.07)
[2021-11-13 12:44] LABS: ALBUMIN 4.2 g/dL (3.2-5.5); ALBUMIN/GLOBULIN RATIO 1.3 (1.0-2.2); ALKALINE PHOSPHATASE 38 IU/L (42-121); ALT ALANINE AMINOTRANSFERASE 27 IU/L (10-60); AST ASPARTATE AMINOTRANSFERASE 19 IU/L (10-42); BILIRUBIN,TOTAL 0.4 mg/dL (0.2-1.0); BUN - BLOOD UREA NITROGEN 15 mg/dL (6-20); CALCIUM 9.7 mg/dL (8.5-10.3); CARBON DIOXIDE - CO2 28 mmol/L (21-32); CHLORIDE 98 mmol/L (101-111); CHOL/HDL RATIO 3.1 (<4.4); CHOLESTEROL 242 mg/dL; CREATININE 0.6 mg/dL (0.4-1.0); GFR - MDRD 111 (>89); GLUCOSE 81 mg/dL (70-100); HDL CHOLESTEROL 79 mg/dL; LDL CHOLESTEROL,CALCULATED 109 mg/dL; LDL/HDL RATIO 1.4 (<4.4); POTASSIUM 3.9 mmol/L (3.5-5.0); SODIUM 137 mmol/L (135-145); TOTAL PROTEIN 7.5 g/dL (6.7-8.2); TRIGLYCERIDES 271 mg/dL; VLDL CHOLESTEROL 54 mg/dL
[2021-11-13 12:56] LABS: THYROID STIMULATING HORMONE 1.95 uIU/mL (0.34-5.60)
[2021-11-13 13:26] LABS: BILIRUBIN,URINE NEGATIVE (NEGATIVE); GLUCOSE, URINE (UA) NEGATIVE (NEGATIVE); KETONES,URINE (UA) NEGATIVE (NEGATIVE); LEUKOCYTE ESTERASE, URINE NEGATIVE (NEGATIVE); NITRITE,URINE NEGATIVE (NEGATIVE); OCCULT BLOOD,URINE LARGE (NEGATIVE); PROTEIN,URINE TRACE mg/dL (NEGATIVE); UROBILINOGEN,URINE 0.2 (NORMAL) E.U./dL (NORMAL)
[2021-11-13 14:02] LABS: BACTERIA,URINE Rare /HPF (None Seen); CLARITY,URINE CLEAR (CLEAR); SQUAMOUS EPITHELIAL CELL,UR RARE Squamous (<= Few); WBC,URINE 0-3 /HPF (0-5)
== END 2021-11-13 09:05 | disposition home or self-care (01) ==
LOC: LAB.N 09:04
PROVIDERS: ATTEND Nurse Practitioner
DX: R53.83 Other fatigue (principal); Z13.220 Encounter for screening for lipoid disorders; R73.03 Prediabetes
CPT/HCPCS: 36415; 80053; 80061; 81001; 83036; 83721; 84443; 85025; 87086

== ENCOUNTER 2022-05-27 08:00 | Outpatient (CLI) | payer MEDICAID | END 2022-05-27 23:59 | disposition home or self-care (01) | LOC: LAB.N 08:00 | PROVIDERS: ATTEND Nurse Practitioner | DX: R10.9 Unspecified abdominal pain (principal) | CPT/HCPCS: 87086 ==

== ENCOUNTER → 2022-06-09 | Outpatient (CLI) | payer MEDICAID ==
--- NOTE | 2022-06-09 14:03 | XRAY Report ---
PROCEDURE: Chest 2 View X-Ray INDICATIONS: COUGH TECHNIQUE: 2 view(s) of the chest. COMPARISON: 02/09/2020 chest x-ray FINDINGS: Surgical changes and devices: None. Lungs and pleura: No pleural effusions or pneumothorax. Mild patchy bilateral perihilar opacity and peribronchial cuffing. Mediastinum: Mediastinal contours are normal. Heart size is normal. Bones and chest wall: No suspicious bony abnormalities. Soft tissues appear unremarkable. IMPRESSION: Mild bronchial pneumonia. Reviewed by: Nhan Brooks MD on 06/09/2022 2:02 PM PDT Approved by: Nhan Brooks MD on 06/09/2022 2:02 PM PDT Station ID: [id number]
== END ==
LOC: DI.N 11:22
PROVIDERS: ATTEND Family Medicine
DX: J18.9 Pneumonia, unspecified organism (principal)

== ENCOUNTER 2022-10-17 03:30 | Emergency (ER) | payer MEDICAID ==
[2022-10-17] MEDS ORDERED: SODIUM CHLORIDE 0.9% 1,000 ML IV STA (03:48)
[2022-10-17] MEDS ORDERED: ONDANSETRON 4 MG/2 ML VIAL IVP STA (03:48)
[2022-10-17] MEDS ORDERED: KETOROLAC 30 MG/ML VIAL IVP STA (03:48)
[2022-10-17 03:53] LABS: BASOPHILS # (AUTO) 0.1 10^3/uL (0.0-0.1); BASOPHILS % (AUTO) 0.5 %; EOSINOPHILS # (AUTO) 0.3 10^3/uL (0.0-0.7); EOSINOPHILS % (AUTO) 2.6 %; HCT - HEMATOCRIT 43.3 % (37.0-47.0); HGB - HEMOGLOBIN 13.6 g/dL (12.0-16.0); LYMPHOCYTES % (AUTO) 26.7 %; MEAN CORPUSCULAR HEMOGLOBIN 27.9 pg (27.0-31.0); MEAN CORPUSCULAR HGB CONC 31.4 g/dL (32.0-36.0); MEAN CORPUSCULAR VOLUME 88.9 fL (81.0-99.0); MEAN PLATELET VOLUME 9.4 fL (7.9-10.8); MONOCYTES # (AUTO) 0.7 10^3/uL (0.0-1.0); MONOCYTES % (AUTO) 6.7 %; PLT - PLATELET COUNT 376 10^3/uL (130-450); RED BLOOD COUNT 4.87 10^6/uL (4.20-5.40); RED CELL DISTRIBUTION WIDTH 13.5 % (12.0-15.0); WHITE BLOOD COUNT 11.1 x10^3/uL (4.8-10.8)
[2022-10-17 04:05] LABS: ALBUMIN 4.1 g/dL (3.2-5.5); ALBUMIN/GLOBULIN RATIO 1.2 (1.0-2.2); BILIRUBIN,TOTAL 0.2 mg/dL (0.2-1.0); CALCIUM 9.7 mg/dL (8.5-10.3); CREATININE 0.6 mg/dL (0.4-1.0); POTASSIUM 3.9 mmol/L (3.5-5.0); TOTAL PROTEIN 7.6 g/dL (6.7-8.2)
--- NOTE | 2022-10-17 04:47 | ED Physician Documentation ---
PD HPI ABD PAIN - Stated complaint Stated Complaint: SIDE PAIN,NAUSEA - Chief complaint Chief Complaint: Abd Pain - History obtained from History obtained from: Patient - Additional information Additional information: Patient is a 42-year-old female presenting for evaluation of right flank to right lower quadrant pain that is been present for 2 days. Initially was intermittent but has become more constant. She has associated nausea but no vomiting. She denies known dysuria. She has not seen blood in her urine. She was seen at the urgent care on Tuesday and they checked her urine and said there was a little bit of blood in it. They told her she could have a kidney stone and she does have a history of 1 prior stone.They gave her a shot of Toradol and recommended she continue with acetaminophen.Patient denies fever, chest pain, difficulty breathing. She denies vaginal discharge or concerns for .History of cholecystectomy. Review of Systems Constitutional: denies: Fever Cardiac: denies: Chest pain / pressure Respiratory: denies: Dyspnea GI: reports: Abdominal Pain, Nausea. denies: Diarrhea : denies: Dysuria Neurologic: denies: Headache PD PAST MEDICAL HISTORY - Past Medical History Past Medical History: Yes Cardiovascular: None Respiratory: None Endocrine/Autoimmune: None GI: None CARDROOM HAND: None : Kidney stones HEENT: None Psych: Depression Musculoskeletal: Fibromyalgia Derm: None - Past Surgical History Past Surgical History: Yes General: Cholecystectomy - Present Medications Home Medications: Ambulatory Orders Medication Instructions Recorded Confirmed DULoxetine [Cymbalta] 30 mg PO DAILY 10/17/22 10/17/22 Hydroxychloroquine [Plaquenil] 200 mg PO DAILY 10/17/22 10/17/22 - Allergies Allergies/Adverse Reactions: Allergies Allergy/AdvReac Type Severity Reaction Status Date / Time latex Allergy Intermediate Hives Verified 10/17/22 03:35 hydrocodone Allergy Mild Itching Verified 10/17/22 03:35 - Social History Does the pt smoke?: No Smoking Status: Never smoker Does the pt drink ETOH?: Yes Does the pt have substance abuse?: No - Immunizations Immunizations are current?: Yes - POLST Patient has POLST: No PD ED PE NORMAL - General General: Alert and oriented X 3, No acute distress, Well developed/nourished - HEENT HEENT: Atraumatic - Neck Neck: Supple, no meningeal sign - Cardiac Cardiac: RRR - Respiratory Respiratory: No respiratory distress, Clear bilaterally - Abdomen Abdomen: Soft, Non distended, Other (Right CVA and right-sided abdominal tende rness to palpation) - Derm Derm: Warm and dry - Neuro Neuro: Normal speech Results - Vitals Vitals: Vital Signs - 24 hr 10/17/22 10/17/22 10/17/22 03:36 03:39 05:39 Temperature 36.5 C Heart Rate 94 87 77 Respiratory 16 17 19 Rate Blood Pressure 116/71 115/67 106/58 L O2 Saturation 100 100 99 10/17/22 07:00 Temperature Heart Rate 74 Respiratory Rate Blood Pressure 112/68 O2 Saturation 99 Oxygen O2 Source Room air - Labs Labs: Laboratory Tests 10/17/22 10/17/22 10/17/22 03:45 03:45 04:45 WBC 11.1 H RBC 4.87 Hgb 13.6 Hct 43.3 MCV 88.9 MCH 27.9 MCHC 31.4 L RDW 13.5 Plt Count 376 MPV 9.4 Neut # (Auto) 7.0 H Lymph # (Auto) 3.0 [place] # (Auto) 0.7 Eos # (Auto) 0.3 Baso # (Auto) 0.1 Absolute Nucleated RBC 0.00 Nucleated RBC % 0.0 Sodium 141 Potassium 3.9 Chloride 104 Carbon Dioxide 27 Anion Gap 10.0 BUN 15 Creatinine 0.6 Estimated GFR (MDRD) 110 Glucose 105 H Calcium 9.7 Total Bilirubin 0.2 AST 13 ALT 17 Alkaline Phosphatase 73 Total Protein 7.6 Albumin 4.1 Globulin 3.5 Albumin/Globulin Ratio 1.2 Lipase 39 Urine Color YELLOW Urine Clarity CLEAR Urine pH 6.0 Ur Specific [place] >=1.030 H Urine Protein NEGATIVE Urine Glucose (UA) NEGATIVE Urine Ketones TRACE Urine Occult Blood TRACE-INTA Urine Nitrite NEGATIVE Urine Bilirubin NEGATIVE Urine Urobilinogen 0.2 (NORMAL) Ur Leukocyte Esterase NEGATIVE Ur Microscopic Review NOT INDICATED Urine Culture Comments NOT INDICATED Urine HCG, Qual NEGATIVE PD Medical Decision Making - ED course Complexity details: reviewed results, re-evaluated patient, d/w patient ED course: Patient presenting for evaluation of right-sided abdominal pain. She has a history of sarcoidosis and is on low-dose prednisone. Her labs were reviewed without significant findings.Her urine does not show infection. She is not . CT scan was obtained And I reviewed the images. It is negative for signs of a stone.Also no signs of bowel obstruction or other acute abdominal process. Patient has been resting comfortably after receiving Toradol. She declined IV narcotic medications. Pt aware that etiology of her symptoms is unclear at this time and recommend close outpatient follow up. Repeat abdominal exam is benign and pt counseled on concerning symptoms to return for. Departure - Departure Disposition: 01 Home, Self Care Clinical Impression: Right-sided abdominal pain of unknown cause Condition: Stable Instructions: ED Abdominal Pain Female Non-Specific Abdominal Pain Comments: The exact cause of your abdominal pain is unclear. Your CT scan does not show a stone in the ureter (tube connecting the kidney to the bladder). You do have a small stone in your right kidney which at this time should not be causing you pain. Your labs are also normal. Your urine does not show any infection or blood. Please have close follow-up with your primary care doctor this week if your symptoms are continuing. If you have any worsening symptoms such as increased pain, fever or any other concerns please consider return to the ER. Discharge Date/Time: 10/17/22 07:04
[2022-10-17 04:57] LABS: BILIRUBIN,URINE NEGATIVE (NEGATIVE); GLUCOSE, URINE (UA) NEGATIVE (NEGATIVE); KETONES,URINE (UA) TRACE mg/dL (NEGATIVE); LEUKOCYTE ESTERASE, URINE NEGATIVE (NEGATIVE); NITRITE,URINE NEGATIVE (NEGATIVE); OCCULT BLOOD,URINE TRACE-INTA (NEGATIVE); PROTEIN,URINE NEGATIVE (NEGATIVE); UROBILINOGEN,URINE 0.2 (NORMAL) E.U./dL (NORMAL)
[2022-10-17 04:59] LABS: CLARITY,URINE CLEAR (CLEAR); HCG UR QUAL NEGATIVE
--- OUTSIDE RECORDS SUMMARY | 2022-10-17 05:26 | EXTERNAL MEDICAL SUMMARY RPT | Continuity of Care Document ---
:1980 Author Organization [facility] Address [address] [place] [address] Phone Allergies No information. Encounters No information. Functional Status No information. Immunizations No information. Medications No information. Problems date description facility 2022-10-05 12:23 S[facility]osis, [facility] Procedures No information. Results/Labs test date author facility value unit interpret ation Result panel 1 (unknown) (no (unknown) (unknown) (no value) (units (unk nown) date) unknown) (unknown) (no (unknown) (unknown) 10/05/22 (units (unkno wn) date) unknown) (unknown) (no (unknown) (unknown) 1. Clear lung (units ( unknown) date) almanza. No unknown) significant mediastinal adenopathy. (unknown) (no (unknown) (unknown) [address] [place] [address] (units (unknown) date) unknown) (unknown) (no (unknown) (unknown) 2. Mild hepatic (units (unknown) date) steatosis. unknown) (unknown) (no (unknown) (unknown) 3. Left (units (unkno wn) date) nephrolithiasis. unknown) (unknown) (no (unknown) (unknown) [id number] (units (unkno wn) date) unknown) (unknown) (no (unknown) (unknown) Abdomen: (units (unkno wn) date) Visualized upper unknown) abdominal solid organs demonstrate mild diffuse (unknown) (no (unknown) (unknown) Accession Number: (units (unknown) date) [id number] unknown) (unknown) (no (unknown) (unknown) After the (units (unkn own) date) administration of unknown) intravenous contrast, 5 mm thick sections acquired (unknown) (no (unknown) (unknown) Age/Sex: 42 / F (units (unknown) date) Date of Service: unknown) (unknown) (no (unknown) (unknown) [place] (units ( unknown) date) [id number] unknown) (unknown) (no (unknown) (unknown) Approved by: (units (u nknown) date) rose Silver) Elizabet on 10/05/2022 at 15:43 (unknown) (no (unknown) (unknown) Bones and chest (units (unknown) date) wall: No unknown) suspicious bony lesions. No vertebral body (unknown) (no (unknown) (unknown) COMPARISON: (units (un known) date) [facility], unknown) CT, CT CHEST WO CON, 04/09/2020, 7:33. (unknown) (no (unknown) (unknown) CT Scan Report (units (unknown) date) unknown) (unknown) (no (unknown) (unknown) Central and (units (un known) date) peripheral airways unknown) are patent and normal in caliber. (unknown) (no (unknown) (unknown) : 1980 (units (unknown) date) Acct:[id number] unknown) (unknown) (no (unknown) (unknown) Dictated by: (units (u nknown) date) rose Silver) Elizabet on 10/05/2022 at 15:38 (unknown) (no (unknown) (unknown) FINDINGS: (units (unkn own) date) unknown) (unknown) (no (unknown) (unknown) IMPRESSION: (units (un known) date) unknown) (unknown) (no (unknown) (unknown) INDICATIONS: (units (u nknown) date) Sarcoidosis unknown) (unknown) (no (unknown) (unknown) Image quality: (units (unknown) date) Excellent. unknown) (unknown) (no (unknown) (unknown) [facility] (units (unknown) date) unknown) (unknown) (no (unknown) (unknown) Loc: CT (units (unkno wn) date) unknown) (unknown) (no (unknown) (unknown) Lungs and pleura: (units (unknown) date) No acute air space unknown) opacities. No pleural effusions or (unknown) (no (unknown) (unknown) Mediastinum: (units (u nknown) date) Heart size is unknown) normal. No pericardial effusion. No mediastinal (unknown) (no (unknown) (unknown) No (units (unkno wn) date) unknown) (unknown) (no (unknown) (unknown) Ordering (units (unkno wn) date) Provider: unknown) Brooklyn Saab LMP (unknown) (no (unknown) (unknown) PROCEDURE: CT (units ( unknown) date) CHEST W CON unknown) (unknown) (no (unknown) (unknown) Patient: (units (unkno wn) date) Awilda Rojo MR#: unknown) [id number] (unknown) (no (unknown) (unknown) Procedure: CT (units ( unknown) date) chest w con unknown) (unknown) (no (unknown) (unknown) Signed (units (unkno wn) date) unknown) (unknown) (no (unknown) (unknown) TECHNIQUE: (units (unk nown) date) unknown) (unknown) (no (unknown) (unknown) Thyroid gland is (units (unknown) date) unknown) (unknown) (no (unknown) (unknown) adenopathy by (units ( unknown) date) size criteria. unknown) Small bilateral hilar lymph nodes. Thoracic (unknown) (no (unknown) (unknown) aorta and (units (unkn own) date) unknown) (unknown) (no (unknown) (unknown) central pulmonary (units (unknown) date) arteries are unknown) normal in size. Esophagus is normal in caliber. (unknown) (no (unknown) (unknown) compression (units (un known) date) unknown) (unknown) (no (unknown) (unknown) coronal and (units (un known) date) sagittal reformats unknown) and 7 mm axial MIP were acquired. For radiation (unknown) (no (unknown) (unknown) dose (units (unkno wn) date) unknown) (unknown) (no (unknown) (unknown) fractures. No (units ( unknown) date) axillary or unknown) supraclavicular adenopathy by size criteria. (unknown) (no (unknown) (unknown) from the (units (unkno wn) date) unknown) (unknown) (no (unknown) (unknown) hepatic (units (unkno wn) date) unknown) (unknown) (no (unknown) (unknown) hiatal hernia. (units (unknown) date) unknown) (unknown) (no (unknown) (unknown) kV according to (units (unknown) date) patient size. unknown) (unknown) (no (unknown) (unknown) mA and/or (units (unkn own) date) unknown) (unknown) (no (unknown) (unknown) nonobstructing (units (unknown) date) left unknown) (unknown) (no (unknown) (unknown) or hilar (units (unkno wn) date) unknown) (unknown) (no (unknown) (unknown) pneumothorax. (units ( unknown) date) unknown) (unknown) (no (unknown) (unknown) pulmonary apices (units (unknown) date) to the posterior unknown) costophrenic angles. 1 mm axial lung, 5 mm (unknown) (no (unknown) (unknown) reduction, the (units (unknown) date) following was unknown) used: automated exposure control, adjustment of (unknown) (no (unknown) (unknown) renal stone. (units (u nknown) date) unknown) (unknown) (no (unknown) (unknown) steatosis and (units ( unknown) date) surgical absence unknown) of the gallbladder. There is a 4 mm (unknown) (no (unknown) (unknown) thick (units (unkno wn) date) unknown) (unknown) (no (unknown) (unknown) unremarkable . (units (unknown) date) unknown) Social History No information. Vital Signs No information.
[2022-10-17 07:00] VITALS: BP 112/68
--- NOTE | 2022-10-17 09:40 | CT Report ---
PROCEDURE: ABDOMEN/PELVIS WO INDICATIONS: R flank pain to RLQ x 2 days TECHNIQUE: Noncontrast 5 mm thick sections acquired from the diaphragms to the symphysis. 5 mm coronal and sagi ttal reformats were then performed. For radiation dose reduction, the following was used: automated exposure control, adjustment of mA and/or kV according to patient size. COMPARISON: 03/01/2017, 06/08/2014. Correlation is also made with overlapping portions of chest CT, FINDINGS: Image quality: Excellent. ABDOMEN: Lung bases: Lung bases are clear. Heart size is normal. Solid organs: Liver and spleen are normal in size. Gallbladder has been removed. Pancreas is juani l in contours. No adrenal nodules. Kidneys are normal in size, without hydronephrosis. There is a n onobstructing 6 mm stone measuring 530 Hounsfield units within the left mid kidney. Peritoneum and bowel: Unenhanced bowel loops demonstrate normal wall thickness and caliber. No free fluid or air. A normal appendix is seen. Nodes and vessels: No retroperitoneal or mesenteric adenopathy by size criteria. Aorta and inferior vena cava are normal in caliber. Miscellaneous: A moderate fat-containing periumbilical hernia is seen. PELVIS: Genitourinary: Bladder wall thickness is normal. The uterus demonstrates an unremarkable appearance for age. No adnexal masses are seen. Miscellaneous: No inguinal hernias or adenopathy. Bones: No suspicious bony lesions. No vertebral body compression fractures. IMPRESSION: No hydronephrosis is seen. Nonobstructing left-sided kidney stone again seen. Additional findings: Cholecystectomy Moderate fat-containing periumbilical hernia, similar to 2017 Normal appendix Note: No significant discrepancy from the preliminary report. Reviewed by: Momo Hernández MD on 10/17/2022 8:38 AM [place] Approved by: Momo Hernández MD on 10/17/2022 8:38 AM [facility] Station ID: [id number]
== END 2022-10-17 07:04 | disposition home or self-care (01) ==
LOC: ED 03:30
DX: R10.31 Right lower quadrant pain (principal)
CPT/HCPCS: 36415; 80053; 81001; 81003; 81025; 83690; 85025; 87086; 96374; 96375; 99283

== ENCOUNTER 2022-10-19 13:03 | Outpatient (CLI) | payer MEDICAID ==
--- NOTE | 2022-10-20 11:26 | Mammography Report ---
BILATERAL DIGITAL SCREENING MAMMOGRAM 3D/2D: 10/19/2022 CLINICAL: Routine screening. Comparison is made to exams dated: 12/03/2019 ultrasound, 12/03/2019 ultrasound, and 12/03/2019 mammogr [facility]. Both breasts are heterogeneously dense, which may obscure small masses (category c / 51-75% glandular tissue). There is a new 1.5 cm irregular equal density focal asymmetry in the left breast at 5 o'clock posteri or depth. No other significant masses, calcifications, or other findings are seen in either breast. IMPRESSION: INCOMPLETE: NEEDS ADDITIONAL IMAGING EVALUATION The new 1.5 cm irregular equal density focal asymmetry in the left breast is indeterminate. Addition al views with possible ultrasound are recommended. Based on the Tyrer Cuzick model (a risk assessment model) the patients lifetime risk is 11.5% and he r 10 year risk is 1.6%. According to the ACR, ACS, and NCCN guidelines, an annual breast MRI exam walter ng with mammogram is recommended if the patients lifetime risk is 20% or greater. This exam was interpreted at Station ID: [id number]. NOTE: For mammograms, a report in lay terms will be sent to the patient. Approximately 15% of breast malignancies will not be visualized mammographically. In the management of a palpable breast mass, a negative mammogram must not discourage biopsy of a clinically suspicious lesion. Electronically Signed By: Christophe Clement M.D. aty/:10/19/2022 17:23:24 ACR BI-RADS Category 0: Incomplete 3340F PARENCHYMAL PATTERN: (D) - The breast(s) demonstrate(s) heterogeneously dense fibroglandular parjagy ma. BI-RADS CATEGORY: (0) - 0 Mammo and [place] [id number] Immediate follow-up LATERALITY: (L)
== END 2022-10-19 13:04 | disposition home or self-care (01) ==
LOC: DI.N 13:03
PROVIDERS: ATTEND Nurse Practitioner
DX: Z12.31 Encounter for screening mammogram for malignant neoplasm of breast (principal); R92.8 Other abnormal and inconclusive findings on diagnostic imaging of breast

== ENCOUNTER 2023-02-03 10:42 | Outpatient (CLI) | payer MEDICAID ==
--- NOTE | 2023-02-04 11:29 | Ultrasound Report ---
LIMITED ULTRASOUND OF LEFT BREAST: 02/03/2023 CLINICAL: Patient returns today to evaluate a focal asymmetry in the left breast. Comparison is made to exams dated: 12/03/2019 mammogram, 12/03/2019 ultrasound, 12/03/2019 ultrasound, 10/19/2022 mammogram, and 02/03/2023 mammogram - [facility]. Color flow ultrasound of the left breast 5 o'clock region was performed. White scale images of the r eal-time examination were reviewed. IMPRESSION: NEGATIVE There is no sonographic evidence of malignancy. There is no abnormality seen in the left breast to correspond with the mammographic density at 5 o'cl ock, identified in Sep 2022 screening images (possibly close/at the skin on tomographic localization) , but not seen today on additional views. Return to annual mammogram screening schedule is recommended. This exam was interpreted at Station ID: [id number]. Electronically Signed By: Obinna Stephens M.D. lc/:02/03/2023 12:02:28 Ultrasound BI-RADS: 1 Negative BI-RADS CATEGORY: (1) - 1 Mammogram [id number] return to screening LATERALITY: (B)
--- NOTE | 2023-02-04 11:29 | Mammography Report ---
UNILATERAL LEFT DIGITAL DIAGNOSTIC MAMMOGRAM 3D/2D: 02/03/2023 CLINICAL: Patient returns today to evaluate a focal asymmetry in the left breast. Comparison is made to exams dated: 10/19/2022 mammogram and 12/03/2019 mammogram - [facility]. The left breast is heterogeneously dense, which may obscure small masses (category c / 51-75% glandul ar tissue). The focal asymmetry in the left breast at 5 o'clock posterior depth is no longer seen. No other significant masses or calcifications are seen in the breast. IMPRESSION: INCOMPLETE: NEEDS ADDITIONAL IMAGING EVALUATION An ultrasound is recommended to assess the focal asymmetry in the left breast posterior depth, which is no longer seen on today's additional views. Based on the Tyrer Cuzick model (a risk assessment model) the patients lifetime risk is 11.9% and he r 10 year risk is 1.8%. According to the ACR, ACS, and NCCN guidelines, an annual breast MRI exam walter ng with mammogram is recommended if the patients lifetime risk is 20% or greater. This exam was interpreted at Station ID: [id number]. NOTE: For mammograms, a report in lay terms will be sent to the patient. Approximately 15% of breast malignancies will not be visualized mammographically. In the management of a palpable breast mass, a negative mammogram must not discourage biopsy of a clinically suspicious lesion. Electronically Signed By: Obinna Stephens M.D. lc/:02/03/2023 12:00:40 ACR BI-RADS Category 0: Incomplete 3340F PARENCHYMAL PATTERN: (D) - The breast(s) demonstrate(s) heterogeneously dense fibroglandular sherie monroy. BI-RADS CATEGORY: (0) - 0 Ultrasound [id number] Immediate follow-up LATERALITY: (B)
== END 2023-02-03 10:43 | disposition home or self-care (01) ==
LOC: DI 10:42
PROVIDERS: ATTEND Nurse Practitioner
DX: R92.8 Other abnormal and inconclusive findings on diagnostic imaging of breast (principal)

== ENCOUNTER 2024-05-31 07:58 | Outpatient (CLI) | payer MEDICAID ==
[2024-05-31 12:11] LABS: BASOPHILS # (AUTO) 0.1 10^3/uL (0.0-0.1); BASOPHILS % (AUTO) 0.6 %; EOSINOPHILS # (AUTO) 0.2 10^3/uL (0.0-0.7); EOSINOPHILS % (AUTO) 2.3 %; HCT - HEMATOCRIT 44.2 % (37.0-47.0); HGB - HEMOGLOBIN 13.8 g/dL (12.0-16.0); LYMPHOCYTES # (AUTO) 2.2 10^3/uL (1.5-3.5); LYMPHOCYTES % (AUTO) 21.8 %; MEAN CORPUSCULAR HEMOGLOBIN 28.5 pg (27.0-31.0); MEAN CORPUSCULAR HGB CONC 31.2 g/dL (32.0-36.0); MEAN CORPUSCULAR VOLUME 91.1 fL (81.0-99.0); MONOCYTES # (AUTO) 0.5 10^3/uL (0.0-1.0); MONOCYTES % (AUTO) 4.7 %; NEUTROPHILS # (AUTO) 7.2 10^3/uL (1.5-6.6); NEUTROPHILS % (AUTO) 70.4 %; PLT - PLATELET COUNT 336 10^3/uL (130-450); RED BLOOD COUNT 4.85 10^6/uL (4.20-5.40); RED CELL DISTRIBUTION WIDTH 13.2 % (12.0-15.0); WHITE BLOOD COUNT 10.2 x10^3/uL (4.8-10.8)
[2024-05-31 12:18] LABS: ESTIMATED AVERAGE GLUCOSE 111 mg/dL (70-100); HEMOGLOBIN A1c% 5.5 % (4.27-6.07)
[2024-05-31 12:29] LABS: ALBUMIN 4.3 g/dL (3.2-5.5); ALBUMIN/GLOBULIN RATIO 1.6 (1.0-2.2); ALKALINE PHOSPHATASE 57 IU/L (42-121); ALT ALANINE AMINOTRANSFERASE 15 IU/L (10-60); AST ASPARTATE AMINOTRANSFERASE 14 IU/L (10-42); BILIRUBIN,TOTAL 0.4 mg/dL (0.2-1.0); BUN - BLOOD UREA NITROGEN 11 mg/dL (6-20); CALCIUM 9.6 mg/dL (8.5-10.3); CARBON DIOXIDE - CO2 27 mmol/L (21-32); CHLORIDE 104 mmol/L (101-111); CHOL/HDL RATIO 2.9 (<4.4); CHOLESTEROL 195 mg/dL; CREATININE 0.6 mg/dL (0.6-1.3); GFR - MDRD 109 (>89); GLUCOSE 91 mg/dL (74-104); HDL CHOLESTEROL 68 mg/dL; LDL CHOLESTEROL,CALCULATED 95 mg/dL; LDL/HDL RATIO 1.4 (<4.4); POTASSIUM 4.3 mmol/L (3.5-4.5); SODIUM 137 mmol/L (135-145); TRIGLYCERIDES 160 mg/dL; VLDL CHOLESTEROL 32 mg/dL
[2024-05-31 12:40] LABS: THYROID STIMULATING HORMONE 1.16 uIU/mL (0.34-5.60)
== END 2024-05-31 07:59 | disposition home or self-care (01) ==
LOC: LAB.N 07:58
PROVIDERS: ATTEND Nurse Practitioner
DX: R53.83 Other fatigue (principal); Z13.220 Encounter for screening for lipoid disorders; E66.01 Morbid (severe) obesity due to excess calories
CPT/HCPCS: 36415; 80053; 80061; 83036; 83721; 84443; 85025